=== PATIENT | female | born 1960 | race Caucasian/White ===

== ENCOUNTER 2017-04-24 10:36 | Emergency (ER) | payer BC ==
[2017-04-24 10:52] VITALS: RESP 16
--- NOTE | 2017-04-24 12:44 | EDPHY ---
General Narrative: CHIEF COMPLAINT: Fall, hip pain, neck pain, head strike HISTORY OF PRESENT ILLNESS: Patient complains of left hip, left rib pain status post fall. She was standing in the snow when she tripped and fell. She landed on rocks. She said she struck her head "really, really hard." Denies loss of consciousness. Has a mild headache. Mild soft tissue neck pain. Severe left-sided rib pain. No shortness of breath. No chest pain. No abdominal pain. She does have mild left knee pain. Her pain is most severe in the left hip pain over the left anterior pelvis. She is unable to bear weight due to this. No other associated complaints or modifying factors. REVIEW OF SYSTEMS: Ten systems reviewed and are negative unless otherwise noted in the HPI PCP: None locally. In [place] SPECIALISTS: None PAST MEDICAL HISTORY: Anxiety PAST SURGICAL HISTORY: Hysterectomy, cholecystectomy SOCIAL HISTORY: Nonsmoker. No alcohol use. Lives in [place]. Visiting her daughter and son here FAMILY HISTORY: Noncontributory EXAMINATION General Appearance: Alert, no distress Head: normocephalic, superficial hematoma to the left occipital scalp. No depression. No bleeding. Eyes: Pupils equal and round, no conjunctival pallor or injection. EOMs intact ENT, Mouth: Mucous membranes moist. airway patent. Neck: Normal inspection, supple, non-tender Respiratory: Lungs are clear to auscultation No wheezing rhonchi or crackles Cardiovascular: Regular rate and rhythm. No murmur. Pulses intact distally with symmetric DP and PT pulses + Gastrointestinal: Abdomen is soft and nontender Back: non-tender, no bony abnormalities Neurological: GCS 15. Cranial nerves 2-12 grossly intact. A&O, nonfocal, strength symmetric. Skin: Warm and dry, no rash Extremities: Tenderness to palpation of the left anterior iliac spine and left hip. Unable to bear weight on the left leg due to pain in the hip. Range of motion of the right extremity and upper extremities symmetric. Superficial abrasions over the left knee. No bony tenderness of the knee. Psychiatric: Mood and affect normal DIFFERENTIAL DIAGNOSES: Including but not limited to fracture, dislocation, sprain, strain, contusion, concussion, intracranial hemorrhage, skull fracture MDM: 12:40 p.m. Mechanical fall with closed head injury, left hip and pelvic pain, left rib pain. Plain films of the chest as read by me reveal no pneumothorax or hemothorax. I do not appreciate any large displaced fractures. Left hip x-ray does not reveal any obvious fracture to me. I will consider CT scan of the hip for further delineation as she is completely nonweightbearing due to pain. 2:40 p.m. Case discussed with radiologist Dr. Medina. CT scans of the head and cervical spine reveal no acute findings. There are chronic changes as noted in the neck. There are no acute fractures or dislocations in the pelvis or hip. 3:10 p.m. Patient re-evaluated. She is resting comfortably. Pain is improved with Percocet. Given negative CT scans of low clinical suspicion and on likelihood that we have missed an occult fracture. I discussed this with the patient and offered an MRI for further evaluation of the pain over the pelvis and hip. She has declined this. We discussed going home with crutches, pain medication and muscle relaxant. We discussed anti-inflammatories, ice and rest. We discussed following up with her primary care physician upon return home to [place] tomorrow. She is comfortable with this plan and would like to be discharged home. She is discharged in stable condition. SUPERVISION: Patient was independently examined, but I discussed the case with my secondary supervising physician Dr. Terry - Diagnostics Imaging Results: Imaging Impressions Hip X-Ray 04/24/17 12:35 Impression: No acute osseous findings. Chest X-Ray 04/24/17 12:39 Impression: No acute findings in the chest. Cervical Spine CT 04/24/17 13:16 Impression: No acute posttraumatic abnormality identified. If there is persistent pain or neurologic deficit, consider MRI and/or flexion and extension views, if clinically indicated. Findings discussed with Kei Lance PA-C on April 24, [address] 04/24/17 13:16 Impression: No acute intracranial findings. Findings discussed with Kei Lance 04/24/2017 at 14:42. Pelvis CT 04/24/17 13:16 Impression: No acute osseous findings. If pain persists and clinical suspicion warrants, consider MRI. Findings discussed with Kei Lance PA-C on April 24, 2017 at 1442 hours. - History Smoking Status: Never smoked - Objective Vital Signs: Initial Vital Signs Temperature (C) 97.7 F 04/24/17 10:47 Heart Rate 78 04/24/17 10:47 Respiratory Rate 16 04/24/17 10:47 Blood Pressure 99/68 L 04/24/17 10:47 O2 Sat (%) 95 04/24/17 10:47 O2 Delivery Mode Room Air Allergies/Adverse Reactions: Sulfa (Sulfonamide Antibiotics) Allergy (Verified 04/24/17 10:56) Home Medications: Medication Instructions Recorded CLONAZEPAM 04/24/17 CYCLOBENZAPRINE HCL [Flexeril] 5 mg PO TIDPRN PRN #9 tab 04/24/17 Hydrocodone/Acetaminophen [[place] 1 each PO Q4-6PRN PRN #13 tablet 04/24/17 7.5-325 Tablet] Medications Given: Discontinued Medications Oxycodone/Acetaminophen (Percocet 5/325) 2 tab PO EDNOW ONE Stop: 04/24/17 13:16 Last Admin: 04/24/17 14:12 Dose: 2 tab Departure - Departure Disposition: Home, Routine, Self-Care Clinical Impression: Contusion of hip, left Qualifiers: Encounter type: initial encounter Qualified Code(s): S70.02XA - Contusion of left hip, initial encounter Contusion of rib on left side Qualifiers: Encounter type: initial encounter Qualified Code(s): S20.212A - Contusion of left front wall of thorax, initial encounter Closed head injury Qualifiers: Encounter type: initial encounter Qualified Code(s): S09.90XA - Unspecified injury of head, initial encounter Condition: Good Instructions: Head Injury (ED), Hip Contusion (ED), Rib Contusion (ED) Additional Instructions: 1. Medications as prescribed as needed 2. Weightbearing on the left hip as tolerated with crutches. Progress as tolerated 3. Contact her established primary care physician upon return home to [place] tomorrow 4. ED precautions as discussed Referrals: [place] [Other] - As per Instructions Prescriptions: CYCLOBENZAPRINE HCL [Flexeril] 5 mg PO TIDPRN PRN #9 tab PRN Reason: Spasms Hydrocodone/Acetaminophen [[place] 7.5-325 Tablet] 1 each PO Q4-6PRN PRN #13 tablet PRN Reason: Pain, Moderate
[2017-04-24] MEDS ORDERED: OXYCODONE/APAP 5/325 TAB PO ONE (13:15)
[2017-04-24 16:17] VITALS: BP 122/63; PULSE 85; TEMP 98.4; O2SAT 96
== END 2017-04-24 16:14 | disposition home or self-care (01) ==
DX: S09.90XA Unspecified injury of head, initial encounter (principal); S70.02XA Contusion of left hip, initial encounter; S20.212A Contusion of left front wall of thorax, initial encounter; W01.198A Fall on same level from slipping, tripping and stumbling with subsequent striking against other object, initial encounter